=== PATIENT | male | born 1985 | race Caucasian/White ===

== ENCOUNTER 2018-09-01 16:29 | Emergency (ER) | payer MEDICAID | END 2018-09-01 19:04 | disposition home or self-care (01) | LOC: FTE 19:04 | DX: S00.81XA Abrasion of other part of head, initial encounter (principal); G44.309 Post-traumatic headache, unspecified, not intractable; R42 Dizziness and giddiness; V00.121A Fall from non-in-line roller-skates, initial encounter | CPT/HCPCS: 70450; 99284-25 ==